=== PATIENT | male | born 1960 | race Two or more races ===

== ENCOUNTER 2024-01-29 20:50 | Emergency (ER) | payer OTHER ==
[~2024-01-29] VITALS: Ht 165.1 cm; Wt 75.0 kg
[2024-01-29 21:30] VITALS: BP 132/88; PULSE 122; RESP 24; TEMP 98.9; O2SAT 99
--- NOTE | 2024-01-29 21:36 | ED.PDOC ---
HPI (NEURO) HPI Comments 63 year old male presents to ER with complaints of anxiety x 1 day. Patient with PMH of hypertension presents VIA EMS, alert and oriented x4, stating "I did 3 shots of whiskey and took 3 hits of marijuana at 8pm and immediately afterwards started feeling very anxious, short of breath and light headed". Denies any pain. Denies taking any medications prior to arrival to ER. Patient presents to ER very anxious on arrival with HR 118 on arrival and remainder of vitals stable. Denies chest pain, palpitations, n/v, numbness/tingling, head injury, falls, abdominal pain, headache, hallucinations/vision changes or any further symptoms/complaints Chief Complaint: Ingestion Time Seen by MD: 21:10 Primary Care Provider: UNKNOWN Reviewed Notes: Nurses Notes, Medications, Allergies Information Source: Patient Mode of Arrival: EMS Past Medical History PAST MEDICAL HISTORY: HTN Surgical History: Denies all surgeries Family History Family History: Unknown Social History Smoker: Non-Smoker Alcohol: Occasionally Drugs: Marijuana Lives In: Home Constitutional: denies: chills, diaphoresis, fatigue, fever, malaise, sweats, weakness, others EENTM: denies: blurred vision, double vision, ear bleeding, ear discharge, ear drainage, ear pain, ear ringing, eye pain, eye redness, hearing loss, mouth pain, mouth swelling, nasal discharge, nose bleeding, nose congestion, nose pain, photophobia, tearing, throat pain, throat swelling, voice changes, others Respiratory: reports: others (As stated in HPI) Cardiovascular: denies: chest pain, dizzy spells, diaphoresis, Dyspnea on exertion, edema, irregular heart beat, left arm pain, lightheadedness, palpitations, PND, syncope, others Gastrointestinal: denies: abdomen distended, abdominal pain, blood streaked bowels, constipated, diarrhea, dysphagia, difficulty swallowing, hematemesis, melena, nausea, poor appetite, poor fluid intake, rectal bleeding, rectal pain, vomiting, others Genitourinary: denies: burning, dysuria, flank pain, frequency, hematuria, incontinence, penile discharge, penile sore, pain, testicle pain, testicle swelling, urgency, others Neurological: reports: others (As stated in HPI) Musculoskeletal: denies: back pain, gout, joint pain, joint swelling, muscle pain, muscle stiffness, neck pain, others Integumetry: denies: bruises, change in color, change in hair/nails, dryness, laceration, lesions, lumps, rash, wounds, others Allergic/Immunocompromised: denies: Difficulty Healing, Frequent Infections, Hives, Itching, others Hematologic/Lymphatic: denies: anemia, blood clots, easy bleeding, easy bruising, swollen glands, others Endocrine: denies: excessive hunger, excessive sweating, excessive thirst, excessive urination, flushing, intolerance to cold, intolerance to heat, unexplained weight gain, unexplained weight loss, others Psychiatric: reports: others (As stated in HPI) Physical Exam General Appearance: Moderate Distress (Patient anxious) HEENT: Normal ENT Inspection, PERRL/EOMI, Pharynx Normal, TMs Normal Neck: Full Range of Motion, Non-Tender, Normal Respiratory: Chest Non-Tender, Lungs Clear, No Accessory Muscle Use, No Respiratory Distress, Normal Breath Sounds Cardiovascular: No Murmur, No Gallop, Tachycardia Breast Exam: Deferred Gastrointestinal: Non Tender, No Pulsatile Mass, Soft Genitalia: Deferred Pelvic: Deferred Rectal: Deferred Extremities: Normal capillary refill, Normal range of motion Neurologic: Alert, interdisciplinary professor II-XII nml as Tested, No Motor Deficits, Normal Mood Cerebellar Function: Normal Reflexes: Normal Skin: Dry, Normal Color, Warm Lymphatic: No Adenopathy EKG EKG : Pulse Rate (adult): 99 Cardiac Rhythm: NSR (SR) Hypertrophy: None Was a procedure done? Was a procedure done?: No Sedation Sedation?: No Differential Diagnosis (SZ) CVA: Drug Overdose, Encephalopathy General Weakness: Electrolyte imbalance, Myocardial infarction X-Ray, Labs, Meds, VS Vital Signs Date Time Temp Pulse Resp B/P (MAP) Pulse Ox O2 Delivery O2 Flow Rate FiO2 01/29/24 22:03 99 01/29/24 21:30 122 24 99 Room Air* 0 21 01/29/24 21:30 98.9 122 24 132/88 (103) 100 98.9 01/29/24 21:09 99 01/29/24 20:57 97.7 118 18 105/72 (83) 100 Lab Test 01/29/24 23:05 01/29/24 21:33 Range/Units Urine Opiates Screen Neg NEGATIVE Urine Fentanyl Screen Neg NEGATIVE Urine Barbiturates Screen Neg NEGATIVE Urine Phencyclidine Screen Neg NEGATIVE Urine Amphetamines Screen Neg NEGATIVE Urine Benzodiazepines Screen Neg NEGATIVE Urine Cocaine Screen Neg NEGATIVE Urine Cannabinoids Screen Pos NEGATIVE White Blood Count 8.5 4.4-10.8 10^3/uL Red Blood Count 4.90 4.5-5.90 10^6/uL Hemoglobin 14.8 13.5-17.5 g/dL Hematocrit 42.8 41.0-53.0 % Mean Corpuscular Volume 87.4 80.0-100.0 fL Mean Corpuscular Hemoglobin 30.1 28.0-32.0 pg Mean Corpuscular Hemoglobin Concent 34.4 32.0-36.0 g/dL Red Cell Distribution Width 13.3 11.8-14.3 % Platelet Count 202 140-450 10^3/uL Mean Platelet Volume 9.4 6.9-10.8 fL Neutrophils (%) (Auto) 59.8 37.0-80.0 % Lymphocytes (%) (Auto) 30.9 10.0-50.0 % Monocytes (%) (Auto) 5.9 0.0-12.0 % Eosinophils (%) (Auto) 2.9 0.0-7.0 % Basophils (%) (Auto) 0.5 0.0-2.0 % Neutrophils # (Auto) 5.1 1.6-8.6 10 ^3/uL Lymphocytes # (Auto) 2.6 0.4-5.4 10 ^3/uL Monocytes # (Auto) 0.5 0-1.3 10 ^3/uL Eosinophils # (Auto) 0.2 0-0.8 10 ^3/uL Basophils # (Auto) 0 0-0.2 10 ^3/uL Nucleated Red Blood Cells 0.1 % Sodium Level 139 136-145 mmol/L Potassium Level 3.7 3.5-5.1 mmol/L Chloride Level 104 98-107 mmol/L Carbon Dioxide Level 22 20-31 mmol/L Anion Gap 13 5-15 Blood Urea Nitrogen 18 9-23 mg/dL Creatinine 1.17 0.700-1.30 mg/dL Glomerular Filtration Rate Calc 70 >90 mL/min BUN/Creatinine Ratio 15.4 10.0-20.0 Serum Glucose 193 H 74-106 mg/dL Calcium Level 10.2 8.7-10.4 mg/dL Troponin I High Sensitivity < 3 L </=54 ng/L Plasma/Serum Blood Alcohol 90.7 H <10 mg/dL Current Medications Medications (Trade) Dose Ordered Sig/Yue Route Start Time Stop Time Status Last Admin Lorazepam (Ativan Inj) 1 mg ONCE ONCE IM 01/29/24 21:30 01/29/24 21:31 DC 01/29/24 21:41 Sodium Chloride 500 ml @ 500 mls/hr Q1H ONCE IV 01/29/24 21:30 01/29/24 22:29 DC 01/29/24 21:41 PATIENT: NATE JASONCCT: [id number]: [id number] : 1960 LOC: ER ROOM / BED: / AGE / SEX: 63 / M ADM STATUS: REG ER SERVICE 02 ORDERING PHYSICIAN: ALIREZA MALDONADO PROCEDURE(s): CXR1 - CHEST XRAY 1 VIEW REASON: SOB ORDER NUMBER(s): [id number], ACCESSION NUMBER(s): [id number] EXAM: XY CHEST XRAY 1 VIEW CLINICAL HISTORY: SOB TECHNIQUE: Single AP view of the chest WID: COMPARISON: None FINDINGS: Lines and tubes: None Chest: The heart size and pulmonary vasculature is within normal limits. No pleural effusion, pneumothorax, or consolidation. Linear bibasilar opacities likely atelectasis or scarring. The osseous structures are grossly intact. IMPRESSION: No acute cardiopulmonary abnormality. ATED BY: ITALIA ORONA MD DICTATED DATE/TIME: 01/29/242240 SIGNED BY: ITALIA ORONA MD SIGNED DATE/TIME: 01/29/242240 CC: CBC reviewed-normal BMP reviewed without any significant abnormalities Troponin reviewed-normal UDS reviewed - positive cannabinoids Blood alcohol reviewed- 90.7 Hep-Lock IV ordered NS 500 ml IV ordered Ativan 1 mg IM ordered EKG reviewed Patient had improvement in symptoms and was asymptomatic prior to discharge Cannabis/ETOH cessation discussed and advised Advised to drink plenty of fluids Advised to follow up with PCP in 1-2 days Patient alert and oriented x4 prior to discharge. Patient verbalized understanding and agreeable with current plan of care Advised to return to ER immediately if symptoms worsen Images Reviewed?: Images reviewed and evaluated by me Time of 1ST Reevaluation: 21:30 Reevaluation 1ST: N/A Time of 2ND Reevaluation: 22:50 Reevaluation 2ND: Improved Patient Education/Counseling: Diagnosis, Treatment, Prognosis, Need For Follow Up Family Education/Counseling: No Family Present Departure 1 Departure Time of Disposition: 22:52 Impression: Primary Impression: Anxiety Additional Impressions: Cannabis abuse ETOH abuse Disposition: 01 HOME / SELF CARE / HOMELESS Condition: Stable Discharged With: Friend Critical Care Note Critical Care Time?: No Stability Stability form required: No Heart Score Heart Score: Heart Score Response (Comments) Value History N/A 0 EKG N/A 0 Age N/A 0 Risk Factors N/A 0 Troponin N/A 0 Total 0 ALIREZA MALDONADO Jan 29, 2024 21:36
[2024-01-29] MEDS: SODIUM CHLORIDE 0.9% 500 ML IV ONE (21:41)
[2024-01-29] MEDS: LORazepam 2MG/ML-1ML VIAL IM ONE (21:41)
[2024-01-29 22:00] LABS: Basophils # (auto) 0 10 ^3/uL (0-0.2); Basophils % (auto) 0.5 % (0.0-2.0); Eosinophils # (auto) 0.2 10 ^3/uL (0-0.8); Eosinophils % (auto) 2.9 % (0.0-7.0); Hematocrit 42.8 % (41.0-53.0); Hemoglobin 14.8 g/dL (13.5-17.5); Lymphocytes # (auto) 2.6 10 ^3/uL (0.4-5.4); Lymphocytes % (auto) 30.9 % (10.0-50.0); Mean Corpuscular Hemoglobin 30.1 pg (28.0-32.0); Mean Corpuscular Hgb Conc. 34.4 g/dL (32.0-36.0); Mean Corpuscular Volume 87.4 fL (80.0-100.0); Monocytes # (auto) 0.5 10 ^3/uL (0-1.3); Monocytes % (auto) 5.9 % (0.0-12.0); Neutrophils # (auto) 5.1 10 ^3/uL (1.6-8.6); Neutrophils % (auto) 59.8 % (37.0-80.0); Nucleated Red Blood Cells % 0.1 %; Platelet Count (auto) 202 10^3/uL (140-450); Red Cell Distribution Width 13.3 % (11.8-14.3); White Blood Cell 8.5 10^3/uL (4.4-10.8)
[2024-01-29 22:03] VITALS: PULSE 99
[2024-01-29 22:06] LABS: Chloride 104 mmol/L (98-107); Potassium 3.7 mmol/L (3.5-5.1); Sodium 139 mmol/L (136-145)
[2024-01-29 22:07] LABS: Anion Gap 13 (5-15); Calcium 10.2 mg/dL (8.7-10.4); Carbon Dioxide 22 mmol/L (20-31)
[2024-01-29 22:12] LABS: BUN/Creatinine Ratio 15.4 (10.0-20.0); Blood Urea Nitrogen 18 mg/dL (9-23); Glucose 193 mg/dL (74-106)
[2024-01-29 22:13] LABS: Blood Alcohol 90.7 mg/dL (<10)
--- NOTE | 2024-01-29 22:43 | DVH ---
EXAM: XY CHEST XRAY 1 VIEW CLINICAL HISTORY: SOB TECHNIQUE: Single AP view of the chest WID: COMPARISON: None FINDINGS: Lines and tubes: None Chest: The heart size and pulmonary vasculature is within normal limits. No pleural effusion, pneumothorax, or consolidation. Linear bibasilar opacities likely atelectasis or scarring. The osseous structures are grossly intact. IMPRESSION: No acute cardiopulmonary abnormality.
[2024-01-29 23:39] LABS: Amphetamine Screen, Urine Neg (NEGATIVE); Barbiturate Scree,Urine Neg (NEGATIVE); Benzodiazephine Screen, Urine Neg (NEGATIVE); Cannabinoid Screen, Urine Pos (NEGATIVE); Cocaine Screen, Urine Neg (NEGATIVE); Opiate Scree,Urine Neg (NEGATIVE); Phencyclidine Screen, Urine Neg (NEGATIVE)
--- NOTE | 2024-01-30 05:44 | ECG ---
[facility] Test Date: 2024-01-29 Test Time: 21:09:20 Pat Name: LAKESHIA JASON Department: ER Room: Gender: M Route Clerk: KATHERINE : 1960 Requested By: ALIREZA MALDONADO Order Number: [id number] Reading MD: Measurements Intervals [place] Rate: 99 P: 62 UT: 196 QRS: -91 QRSD: 152 T: 23 QT: 385 QTc: 495 Interpretive Statements Sinus rhythm RBBB and LAFB Please click the below link to view image of tracing.
== END 2024-01-29 23:40 | disposition home or self-care (01) ==
LOC: ER 20:50 → EDBD 20:50 → ER 23:40
DX: F41.9 Anxiety disorder, unspecified (principal); F10.10 Alcohol abuse, uncomplicated; F12.10 Cannabis abuse, uncomplicated; I10 Essential (primary) hypertension; Z79.899 Other long term (current) drug therapy
CPT/HCPCS: 36415; 71045; 80048; 80307; 80320; 84484; 85025; 93005; 96372; 99285; J2060; J7040